=== PATIENT | female | born 1945 | race Caucasian/White ===

== ENCOUNTER → 2016-12-30 | Outpatient (CLI) | payer OTHER, MEDICARE ==
[~2016-12-30] MED LIST: DRIS50002 PO; FERR325T PO; MULTCAP PO; SENO8.6T2 PO; SLO MAG PO; TYLE325T5 PO; VITA1TAB7 PO; VITATAB11 PO; ZOMI2.5T4 PO
--- NOTE | 2016-12-30 15:45 | REPMRS ---
Patient History The patient states she had a clinical breast exam in Patient is postmenopausal and has history of other cancer at age 65. Family history of breast cancer in maternal aunt at age 50 or over. Digital Woman Screen Mammo: December 30, 2016 - Exam #: [id number] Bilateral CC and MLO view(s) were taken. Technologist: Sarah Crook, Technologist Prior study comparison: December 23, 2015, digital woman screen mammo performed at [facility]. November 20, 2014, digital woman screen mammo performed at [facility]. November 19, 2013, digital woman screen mammo performed at [facility]. FINDINGS: There are scattered fibroglandular densities. There has been no change in the appearance of the mammogram from the prior studies. There is a mild amount of scattered fibroglandular density which is fairly symmetric. There is no interval development of dominant mass, architectural distortion, or clustered microcalcification suggestive of malignancy. ASSESSMENT: BI-RADS/ACR category 1 mammogram. Negative. Recommendation Routine screening mammogram in 1 year (for women over age 40). This mammogram was interpreted with the aid of an FDA-approved computer-aided dectection system. Electronically Signed By: Mansoor Villatoro MD 12/30/16 [id number]
== END ==
LOC: M WHC 13:58
PROVIDERS: ATTEND Nurse Practitioner Family
DX: Z12.31 Encounter for screening mammogram for malignant neoplasm of breast (principal); Z78.0 Asymptomatic menopausal state; Z85.9 Personal history of malignant neoplasm, unspecified

== ENCOUNTER → 2018-01-02 | Outpatient (CLI) | payer OTHER, MEDICARE | LOC: M WHC 13:36 | DX: Z12.31 Encounter for screening mammogram for malignant neoplasm of breast (principal) | CPT/HCPCS: 77067 ==

== ENCOUNTER → 2018-02-27 | Outpatient (CLI) | payer OTHER, MEDICARE ==
[~2018-02-27] MED LIST changes: -DRIS50002 PO; -FERR325T PO; +GASTROGRAFIN SOLUTION 30ML (Q9963) As Ordered; +ISOVUE-370 76% 100ML VIAL (Q9967) As Ordered; -MULTCAP PO; -SENO8.6T2 PO; -SLO MAG PO; -TYLE325T5 PO; -VITA1TAB7 PO; -VITATAB11 PO; -ZOMI2.5T4 PO
== END ==
LOC: M RAD 13:47
DX: K50.90 Crohn's disease, unspecified, without complications (principal); R10.11 Right upper quadrant pain

== ENCOUNTER 2018-07-24 05:34 | Day surgery (SDC) | payer OTHER, MEDICARE ==
[2018-07-24] MEDS ORDERED: LIDOCAINE 1% MDV 20ML VIAL SQ (06:00)
[2018-07-24] MEDS ORDERED: LR 1,000 ML IV ×3 (07:00→09:45)
[2018-07-24] MEDS ORDERED: ceFAZolin SOD 1 GM in D5W MINI-BAG PLUS 50 ML IV (07:00)
[2018-07-24] MEDS ORDERED: LevoFLOXacin(LEVAQUIN)500 MG/100 ML BAG (J1956) As Ordered (07:01)
[2018-07-24] MEDS: LevoFLOXacin IV 500 MG in APPROPRIATE DILUENT 1 EA IV (07:08)
[2018-07-24] MEDS ORDERED: MIDAZOLAM INJ 2 MG/2 ML VIAL (J2250) As Ordered (07:53)
[2018-07-24] MEDS ORDERED: GLYCOPYRROLATE INJ 0.2 MG/ML 2 ML VIAL As Ordered (07:53)
[2018-07-24] MEDS ORDERED: ROCURONIUM BROMIDE 50 MG/5 ML VIAL As Ordered ×2 (07:53→08:30)
[2018-07-24] MEDS ORDERED: PROPOFOL 200 MG/20 ML VIAL As Ordered (07:53)
[2018-07-24] MEDS ORDERED: NEOSTIGMINE 10 MG/10 ML VIAL (J2710) As Ordered (07:53)
[2018-07-24] MEDS ORDERED: SEVOFLURANE INHAL SOLN 250 ML BTL As Ordered (07:53)
[2018-07-24] MEDS ORDERED: fentaNYL 250 MCG/5 ML INJECTION (J3010) As Ordered (07:53)
[2018-07-24] MEDS ORDERED: ONDANSETRON 4MG/2ML VIAL (J2405) As Ordered (07:53)
[2018-07-24] MEDS ORDERED: dexameTHASONE 4 MG/ML 1ML VIAL (J1100) As Ordered (07:53)
[2018-07-24] MEDS ORDERED: METOCLOPRAMIDE INJ 10MG/2ML VIAL (J2765) As Ordered (07:53)
[2018-07-24] MEDS ORDERED: LIDOCAINE 2% INJ 100 MG/5 ML SDV (FOR ANES.) As Ordered (07:53)
[2018-07-24] MEDS ORDERED: ePHEDrine SULFATE 25 MG/5 ML(5MG/ML) SYRINGE As Ordered (08:05)
[2018-07-24] MEDS: BUPIVACAINE/EPIN 0.25% 30 ML VIAL As Ordered (09:06)
[2018-07-24] MEDS ORDERED: METOCLOPRAMIDE INJ 10MG/2ML VIAL (J2765) IV (09:45)
[2018-07-24] MEDS: PERCOCET 5MG/325MG TAB PO ×2 (09:45→10:19)
[2018-07-24] MEDS ORDERED: fentaNYL 100 MCG/2 ML INJECTION (J3010) IV (09:45)
[2018-07-24] MEDS ORDERED: NORCO, ANEXSIA 5/325MG TABLET (HYDROcodone/ACETAMINOPHEN) PO (09:45)
[2018-07-24] MEDS ORDERED: ONDANSETRON 4MG/2ML VIAL (J2405) IV ×2 (09:45)
[2018-07-24] MEDS ORDERED: MEPERIDINE INJ 25 MG/ML VIAL (J2175) IV (09:45)
[2018-07-24] MEDS ORDERED: MORPHINE 2 MG/ML 1ML SYRINGE (J2270) IV (09:45)
[2018-07-24] MEDS: KETOROLAC 30 MG/ML VIAL (J1885) IV (09:55)
[2018-07-24] MEDS ORDERED: KETOROLAC 30 MG/ML VIAL (J1885) As Ordered (09:55)
== END 2018-07-24 14:00 | disposition home or self-care (01) ==
LOC: M SDC 05:34
DX: K40.90 Unilateral inguinal hernia, without obstruction or gangrene, not specified as recurrent (principal); I10 Essential (primary) hypertension; F41.9 Anxiety disorder, unspecified; F32.9 Major depressive disorder, single episode, unspecified; G43.909 Migraine, unspecified, not intractable, without status migrainosus; K21.9 Gastro-esophageal reflux disease without esophagitis; Z88.0 Allergy status to penicillin; Z79.899 Other long term (current) drug therapy; Z86.2 Personal history of diseases of the blood and blood-forming organs and certain disorders involving the immune mechanism; Z78.0 Asymptomatic menopausal state
CPT/HCPCS: 49650

== ENCOUNTER 2018-08-29 12:47 | Emergency (ER) | payer OTHER, MEDICARE | END 2018-08-29 14:11 | disposition home or self-care (01) | LOC: M ED 12:47 | DX: M25.561 Pain in right knee (principal); I10 Essential (primary) hypertension; D64.9 Anemia, unspecified; Z88.0 Allergy status to penicillin; Z88.1 Allergy status to other antibiotic agents; Z79.899 Other long term (current) drug therapy | CPT/HCPCS: 73564 ==

== ENCOUNTER → 2019-03-04 | Outpatient (CLI) | payer OTHER, MEDICARE ==
[~2019-03-04] MED LIST changes: +CALC-235 PO; +DRIS50003 PO; +FERR1TAB8 PO; -GASTROGRAFIN SOLUTION 30ML (Q9963) As Ordered; +IBUP200C25 PO; -ISOVUE-370 76% 100ML VIAL (Q9967) As Ordered; +LOSA100T50 PO; +MAGN400C PO; +MELA5TAB21 PO; +MULTCAP PO; +PYRI100T5 PO; +RANI1SYP PO; +SENO8.6T5 PO; +SLO MAG PO; +TYLE325T5 PO; +VITA1TAB7 PO; +VITATAB11 PO; +XANA0.25 PO; +ZOLO50TA PO; +ZOMI2.5T4 PO
--- NOTE | 2019-03-04 14:57 | REPMRS ---
Patient History The patient states she had a clinical breast exam in 02/2019. Patient is postmenopausal and has history of squamous cell skin cancer at age 65. Family history of breast cancer at age 50 or over in maternal aunt. No Hormone Replacement Therapy Digital Woman Screen Mammo: March 04, 2019 - Exam #: [id number] Bilateral CC and MLO view(s) were taken. Technologist: Tatiana Licea, Technologist Prior study comparison: January 02, 2018, digital woman screen mammo performed at [facility]. November 19, 2013, digital woman screen mammo performed at [facility]. FINDINGS: There are scattered fibroglandular densities. Bilateral screening digital mammogram with tomosynthesis: The patient states that there are no palpable abnormalities or other breast complaints. The patient's [facility] Lifetime Breast Carcinoma Risk is: 8.3 There are scattered areas of fibroglandular density.. There is no interval development of dominant mass, areas of architectural distortion, or clustered microcalcification typical of malignancy. There are no additional findings on tomosynthesis. This mammogram is interpreted with the aid of an FDA approved computer-aided detection system. Not all cancers are identified by mammography. Negative mammogram reports should not delay biopsy if a dominant or clinically suspicious mass is present. Adenosis and dense breasts may obscure an underlying neoplasm. No significant changes when compared with prior studies. Assessment: BI-RADS/ACR category 1 mammogram. Negative Mammogram. Recommendation Routine screening mammogram in 1 year (for women over age 40). This mammogram was interpreted with the aid of an FDA-approved computer-aided dectection system. A. Negative x-ray reports should not delay biopsy if a dominant or clinically suspicious mass is present. B. Not all cancers are identified by mammography. C. Adenosis and dense breast may obscure an underlying neoplasm. Electronically Signed By: Kermit Crane M.D. 03/04/19 [id number]
== END ==
LOC: M WHC 13:53
PROVIDERS: ATTEND Nurse Practitioner Family
DX: Z12.31 Encounter for screening mammogram for malignant neoplasm of breast (principal); Z78.0 Asymptomatic menopausal state; Z85.828 Personal history of other malignant neoplasm of skin

== ENCOUNTER → 2019-04-01 | Outpatient (REF) | payer OTHER, MEDICARE ==
[2019-04-03 14:07] LABS: Lyme Disease IgG/IgM Antibodie <0.91 ISR (0.00-0.90); Lyme Disease IgM Ab Quantitati <0.80 index (0.00-0.79)
== END ==
LOC: M LAB REF 12:35
PROVIDERS: ATTEND Family Medicine
DX: Z11.59 Encounter for screening for other viral diseases (principal)

== ENCOUNTER → 2020-03-05 | Outpatient (CLI) | payer OTHER, MEDICARE ==
--- NOTE | 2020-03-05 14:55 | REPMRS ---
Patient History The patient states she had a clinical breast exam in February 2020. Family history of breast cancer at age 50 or over in maternal aunt. No Hormone Replacement Therapy 3D TOMOSYNTHESIS WAS PERFORMED. The [facility] Rizvi lifetime risk for breast cancer is 7.8%. HALLIE Marks. Digital Woman Screen Mammo: March 05, 2020 - Exam #: [id number] Bilateral CC and MLO view(s) were taken. Technologist: Malinda Contreras, Technologist Prior study comparison: March 04, 2019, bilateral digital woman screen mammo performed at [facility]. January 02, 2018, digital woman screen mammo performed at [facility]. FINDINGS: There are scattered fibroglandular densities. There has been no change in the appearance of the mammogram from the prior studies. There is a mild amount of residual fibroglandular tissue which is fairly symmetric. There is no interval development of dominant mass, architectural distortion, or clustered microcalcification suggestive of malignancy. Assessment: BI-RADS/ACR category 1 mammogram. Negative Mammogram. Recommendation Routine screening mammogram in 1 year (for women over age 40). This mammogram was interpreted with the aid of an FDA-approved computer-aided dectection system. Electronically Signed By: Kermit Flores MD 03/05/20 [id number]
== END ==
LOC: M WHC 13:42
PROVIDERS: ATTEND Nurse Practitioner Family
DX: Z12.31 Encounter for screening mammogram for malignant neoplasm of breast (principal); Z80.3 Family history of malignant neoplasm of breast

== ENCOUNTER → 2020-03-11 | Outpatient (REF) | payer OTHER, MEDICARE | LOC: M LAB REF 15:58 | PROVIDERS: ATTEND Family Medicine | DX: Z01.89 Encounter for other specified special examinations (principal) ==

== ENCOUNTER → 2020-04-21 | Outpatient (CLI) | payer OTHER, MEDICARE ==
--- NOTE | 2020-05-12 08:54 | DEXA ---
AP SPINE L1 - L4 0.926 -2.2 -0.5 LT FEMUR TOTAL 0.755 -2.0 -0.4 LT NECK 0.827 -1.5 0.3 RT FEMUR TOTAL 0.780 -1.8 -0.2 RT NECK 0.836 -1.5 0.4 TOTAL BODY TOTAL OTHER COMMENTS: There is low bone density of the spine and hips. The density of the spine has decreased 18.8% since the initial exam on 03/25/2003. The increased 10.2% since the most recent exam on 11/28/2014. The density of the left hip has decreased 26.8% since the initial exam on 03/25/2003. The density of the left hip has decreased 17.3% since the most recent exam on 11/28/2014. The density of the right hip has decreased 25.4% since the initial exam on 03/25/2003. The density of the right hip has decreased 15.8% since the most recent exam on 11/28/2014. FOLLOW-UP: Recommendation for the next bone density exam: 2 years. YESENIA
== END ==
LOC: M WHC 07:51
PROVIDERS: ATTEND Family Medicine
DX: M85.80 Other specified disorders of bone density and structure, unspecified site (principal)

== ENCOUNTER → 2021-03-18 | Outpatient (CLI) | payer OTHER, MEDICARE ==
--- NOTE | 2021-03-18 12:47 | REPMRS ---
Patient History The patient states she had a clinical breast exam in March 2021. Family history of breast cancer at age 50 or over in maternal aunt. No Hormone Replacement Therapy Patient states no breast complaints today. Patient has signed MRS History Sheet. Digital Woman Screen Mammo: March 18, 2021 - Exam #: [id number] Bilateral CC and MLO view(s) were taken. Technologist: Ivy Pickett, Technologist Prior study comparison: March 05, 2020, bilateral digital woman screen mammo performed at [facility]. March 04, 2019, bilateral digital woman screen mammo performed at [facility]. January 02, 2018, digital woman screen mammo performed at [facility]. FINDINGS: There are scattered fibroglandular densities. The Volpara volumetric breast density category is:B. There has been no change in the appearance of the mammogram from the prior studies. There is a mild amount of scattered fibroglandular density which is fairly symmetric. There is no interval development of dominant mass, architectural distortion, or grouped microcalcification suggestive of malignancy. 3-D tomosynthesis shows no additional findings. Assessment: BI-RADS/ACR category 1 mammogram. Negative Mammogram. Recommendation Routine screening mammogram of both breasts in 1 year (for women over age 40). This patient's [facility] Lifetime Breast Cancer Risk is estimated at 7.3 %. This mammogram was interpreted with the aid of an FDA-approved computer-aided dectection system. Electronically Signed By: Mansoor Villatoro MD 03/18/21 [id number]
== END ==
LOC: M WHC 10:44
PROVIDERS: ATTEND Nurse Practitioner Women's Health
DX: Z12.31 Encounter for screening mammogram for malignant neoplasm of breast (principal)

== ENCOUNTER → 2022-03-29 | Outpatient (CLI) | payer OTHER, MEDICARE ==
[~2022-03-29] MED LIST changes: +E-Z-GAS II EFFERVESCENT PACKET (SODIUM BICARB./CITRIC ACID/SIMETHICONE) As Ordered ONE; +E-Z-HD 98% w/w 340GM SUSP BTL As Ordered ONE; +E-Z-PAQUE 96% w/w SUSP 176GM BTL As Ordered ONE; +LOSA100T45 PO; -LOSA100T50 PO
== END ==
LOC: M RAD 08:16
PROVIDERS: ATTEND Family Medicine
DX: K21.9 Gastro-esophageal reflux disease without esophagitis (principal); K57.10 Diverticulosis of small intestine without perforation or abscess without bleeding

== ENCOUNTER → 2022-07-04 | Outpatient (CLI) | payer OTHER, MEDICARE ==
[~2022-07-04] MED LIST changes: -E-Z-GAS II EFFERVESCENT PACKET (SODIUM BICARB./CITRIC ACID/SIMETHICONE) As Ordered ONE; -E-Z-HD 98% w/w 340GM SUSP BTL As Ordered ONE; -E-Z-PAQUE 96% w/w SUSP 176GM BTL As Ordered ONE
== END ==
LOC: M WHC 09:17
PROVIDERS: ATTEND Obstetrics & Gynecology
DX: Z12.31 Encounter for screening mammogram for malignant neoplasm of breast (principal)

== ENCOUNTER → 2023-07-10 | Outpatient (CLI) | payer OTHER, MEDICARE ==
[~2023-07-10] MED LIST changes: -LOSA100T45 PO; +LOSA100T46 PO
== END ==
LOC: M WHC 14:00
PROVIDERS: ATTEND Obstetrics & Gynecology
DX: Z13.820 Encounter for screening for osteoporosis (principal); M85.89 Other specified disorders of bone density and structure, multiple sites

== ENCOUNTER → 2023-07-10 | Outpatient (CLI) | payer OTHER, MEDICARE | LOC: M WHC 13:30 | PROVIDERS: ATTEND Obstetrics & Gynecology | DX: Z12.31 Encounter for screening mammogram for malignant neoplasm of breast (principal) ==

== ENCOUNTER → 2023-07-10 | Outpatient (REF) | payer OTHER, MEDICARE | LOC: M SFHCWAGY 17:03 | PROVIDERS: ATTEND Obstetrics & Gynecology | DX: R30.0 Dysuria (principal) ==

== ENCOUNTER 2024-08-23 09:46 | Day surgery (SDC) | payer OTHER, MEDICARE ==
[~2024-08-23] VITALS: Ht 170.2 cm; Wt 77.1 kg
[~2024-08-23 09:46] MED LIST changes: +ALPR0.5T3 PO; +CALC-356 PO; +EQL50TAB2 PO; +ERGO500029 PO; +FAMO40TA3 PO; +LOSA50TA28 PO; +MULT-90 PO; +ROPI1TAB73 PO; +ZOLO100T PO
[2024-08-23] MEDS ORDERED: LIDOCAINE 2% 100MG/5ML SDV (FOR ANES.) As Ordered ONE (10:53)
[2024-08-23] MEDS ORDERED: propofoL 200 MG/20 ML VIAL As Ordered ONE (10:53)
[2024-08-23] MEDS ORDERED: ePHEDrine SULFATE 25 MG/5 ML(5MG/ML) SYRINGE As Ordered ONE (11:38)
[2024-08-23 11:48] VITALS: TEMP 98.3
[2024-08-23 12:05] VITALS: BP 115/56; O2SAT 100
== END 2024-08-23 12:13 | disposition home or self-care (01) ==
LOC: M OPP 09:46
PROVIDERS: ATTEND Surgery
DX: Z12.11 Encounter for screening for malignant neoplasm of colon (principal); Z12.12 Encounter for screening for malignant neoplasm of rectum; K57.30 Diverticulosis of large intestine without perforation or abscess without bleeding; K21.9 Gastro-esophageal reflux disease without esophagitis; Z87.19 Personal history of other diseases of the digestive system; D64.9 Anemia, unspecified; I10 Essential (primary) hypertension; G43.909 Migraine, unspecified, not intractable, without status migrainosus; Z79.899 Other long term (current) drug therapy; Z90.89 Acquired absence of other organs; Z88.1 Allergy status to other antibiotic agents; Z88.0 Allergy status to penicillin; Z88.8 Allergy status to other drugs, medicaments and biological substances

== ENCOUNTER → 2024-11-19 | Outpatient (CLI) | payer OTHER, MEDICARE | LOC: M WHC 12:10 | PROVIDERS: ATTEND Obstetrics & Gynecology | DX: Z12.31 Encounter for screening mammogram for malignant neoplasm of breast (principal) ==